=== PATIENT | female | born 1955 | race Caucasian/White ===

== ENCOUNTER 2022-02-22 01:21 | Emergency (ER) | payer OTHER ==
[~2022-02-22] VITALS: Ht 170.2 cm; Wt 105.2 kg
[2022-02-22 02:39] LABS: EOSINOPHILS % (AUTO) 3.6 % (0.0-8.0); HEMATOCRIT 38.3 % (36-48); LYMPHOCYTES % (AUTO) 26.4 % (21.0-51.0); MEAN CORPUSCULAR HEMOGLOBIN 30.6 pg (27.0-33.0); MEAN CORPUSCULAR HGB CONC 32.4 g/dL (32.0-36.0); MEAN CORPUSCULAR VOLUME 94.6 fL (79-99); MONOCYTES % (AUTO) 6.9 % (3.0-13.0); PLATELET COUNT (AUTO) 341 K/uL (130-400); RED BLOOD CELL COUNT(AUTO) 4.05 MIL/uL (4.00-5.50); RED CELL DISTRIBUTION WIDTH 13.6 % (11.0-15.5); WHITE BLOOD COUNT (AUTO) 8.1 K/uL (4.8-10.8)
[2022-02-22 02:52] LABS: CREATININE 1.2 mg/dL (0.5-1.5); POTASSIUM 3.8 mmol/L (3.5-5.1)
[2022-02-22 02:56] LABS: ALBUMIN 3.2 g/dL (3.5-5.0); BILIRUBIN,TOTAL 0.4 mg/dL (0.2-1.0); TOTAL PROTEIN, SERUM 7.3 g/dL (6.0-8.3)
[2022-02-22 03:00] LABS: B-TYPE NATRIURETIC PEPTIDE 135 pg/mL (0-100)
[2022-02-22 04:23] VITALS: BP 147/82
== END 2022-02-22 04:39 | disposition home or self-care (01) ==
LOC: EDH 01:21
DX: I11.0 Hypertensive heart disease with heart failure (principal); I50.9 Heart failure, unspecified; E03.9 Hypothyroidism, unspecified; E78.00 Pure hypercholesterolemia, unspecified; F41.9 Anxiety disorder, unspecified; Z86.73 Personal history of transient ischemic attack (TIA), and cerebral infarction without residual deficits; Z96.653 Presence of artificial knee joint, bilateral
CPT/HCPCS: 36415; 71045; 80053; 82550; 83735; 83880; 84484; 85025; 93005

== ENCOUNTER → 2024-06-05 | Outpatient (CLI) | payer OTHER ==
[~2024-06-05] MED LIST: DICL20GE TP; IBUP-2070 PO; MUPI22OI2 TP
== END | disposition home or self-care (01) ==
LOC: SHCH 10:53
PROVIDERS: ATTEND Internal Medicine Cardiovascular Disease
DX: I08.3 Combined rheumatic disorders of mitral, aortic and tricuspid valves (principal); I48.91 Unspecified atrial fibrillation
CPT/HCPCS: 93306

== ENCOUNTER → 2024-06-19 | Outpatient (CLI) | payer OTHER | END | disposition home or self-care (01) | LOC: SHCH 11:12 | PROVIDERS: ATTEND Internal Medicine Cardiovascular Disease | DX: R60.0 Localized edema (principal) | CPT/HCPCS: 93970 ==

== ENCOUNTER 2024-11-15 12:57 | Emergency (ER) | payer OTHER ==
[~2024-11-15] VITALS: Ht 170.2 cm; Wt 94.8 kg
[2024-11-15 13:48] LABS: BASOPHILS # (AUTO) 0.05 K/uL (0.00-0.20); BASOPHILS % (AUTO) 0.5 % (0.0-5.0); HEMATOCRIT 34.3 % (36-48); IMMATURE GRANULOCYTE ABSOLUTE 0.04 K/uL (0-1); LYMPHOCYTES # (AUTO) 1.1 K/uL (1.0-4.8); LYMPHOCYTES % (AUTO) 11.2 % (21.0-51.0); MEAN CORPUSCULAR HGB CONC 32.1 g/dL (32.0-36.0); MEAN CORPUSCULAR VOLUME 90.5 fL (79-99); MONOCYTES # (AUTO) 0.8 K/uL (0.1-1.0); NEUTROPHILS # (AUTO) 7.8 K/uL (1.8-7.7); NEUTROPHILS % (AUTO) 78.9 % (40.0-77.0); PLATELET COUNT (AUTO) 266 K/uL (130-400); RED BLOOD CELL COUNT(AUTO) 3.79 MIL/uL (4.00-5.50); RED CELL DISTRIBUTION WIDTH 14.1 % (11.0-15.5); WHITE BLOOD COUNT (AUTO) 9.9 K/uL (4.8-10.8)
--- NOTE | 2024-11-15 13:56 | EKG ---
[facility] Test Date: 2024-11-15 Test Time: 13:53:40 Pat Name: EDER ROSE Department: ED Room: Gender: F [place]: [id number] : 1955 Requested By: ABDI العلي Order Number: [id number] Reading MD: Josr Johnson Measurements Intervals [place] Rate: 103 P: 0 SD: 0 QRS: -22 QRSD: 99 T: 14 QT: 386 QTc: 507 Interpretive Statements Atrial fibrillation Borderline T abnormalities, diffuse leads Prolonged QT interval Compared to ECG 02/22/2022 03:10:54 T-wave abnormality now present Prolonged QT interval now present Sinus rhythm no longer present Myocardial infarct finding no longer present Electronically Signed On 11-15-2024 22:17:56 DIAGRAMMER by Josr Johnson Please click the below link to view image of tracing.
[2024-11-15 13:57] LABS: CREATININE 1.7 mg/dL (0.5-1.0); POTASSIUM 3.6 mmol/L (3.5-5.1)
[2024-11-15 15:16] LABS: COVID19 (SARS ANTIGEN RAPID) PRESUMPTIVE NEGATIVE (NEGATIVE)
[2024-11-15 15:17] LABS: INFLUENZA TYPE A Negative For Type A (NEGATIVE); INFLUENZA TYPE B Negative For Type B (NEGATIVE)
[2024-11-15 16:32] LABS: APPEARANCE,URINE CLOUDY (CLEAR); BILIRUBIN,URINE NEGATIVE (NEGATIVE); COLOR,URINE LIGHT-YELLOW (YELLOW); GLUCOSE, URINE (UA) NEGATIVE (NEGATIVE); KETONES,URINE NEGATIVE (NEGATIVE); LEUKOCYTE ESTERASE ,URINE 500 Leu/uL (NEGATIVE); NITRATE,URINE 2+ (NEGATIVE); PH,URINE 5.5 (5.0-8.0); PROTEIN,URINE 30 mg/dL (NEGATIVE); UROBILINOGEN,URINE 0.2 mg/dL (0.2-1.0)
[2024-11-15] MEDS: cefTRIAXone 1G VIAL IVPB ONE (16:32)
[2024-11-15 16:39] LABS: ADD UA MICROSCOPIC YES
[2024-11-15 16:41] LABS: BACTERIA,URINE MOD /HPF (None Seen); MUCUS,URINE RARE LPF (None Seen); SQUAMOUS EPITHELIAL CELL,UR FEW /HPF (0-2); UNCLASSIFIED CRYSTAL 1 /HPF (None Seen); WBC CLUMP FEW /HPF (0-1); WBC,URINE 51-100 /HPF (0-1)
[2024-11-15] MEDS: acetaMINOPHEN 500 MG TABLET PO ONE (17:05)
[2024-11-15 18:17] VITALS: TEMP 99.2
[2024-11-15] MEDS ORDERED: CIPR-278 PO (18:22)
--- NOTE | 2024-11-15 18:22 | ERN ---
ED Note History of Present Illness Stated Complaint: POSSIBLE UTI Chief Complaint: UTI without Fever Time Seen by MD: 12:58 Time Seen by Midlevel: 12:58 Dictation: The patient is a 69-year-old female with a history of hypothyroidism, hypertension, AFib on Eliquis who presents to the emergency department with complaints of fever and chills onset yesterday. Patient reports she thinks she has a urinary tract infection. Denies any nausea, vomiting, diarrhea, burning urination, cough or upper respiratory symptoms. Denies any flank pain. Allergies: Coded Allergies: Tetracyclines (Unverified Allergy, Unknown, 04/02/19) Home Meds Active Scripts Ciprofloxacin HCl (Cipro) 500 Mg Tablet, 1 TAB PO BID for 5 Days, #10 TAB 0 Refills Prov:PETRA GORE 11/15/24 Mupirocin (Mupirocin Ointment) 2 % Oint, 1 APPL TP TID for abrasions, #30 GM apply to any abrasions after cleansing Prov:NOHEMI NAVARRO 08/17/23 Ibuprofen (Ibuprofen) 600 Mg Tablet, 600 MG PO Q6H PRN for PAIN, #15 TAB Prov:NOHEMI NAVARRO 08/17/23 Diclofenac Sodium (Voltaren Arthritis Pain) 1 % Gel..gram., 20 GM TP BID PRN for PAIN, #100 GM Prov:NOHEMI NAVARRO 08/17/23 Past Medical History Past Medical History: A-Fib, UTI Surgical History: Hysterectomy, Cholecystectomy, Other Surgical History Other: ANKLE AND KNEE RN Note Reviewed/Agreed w/PFSH: Yes Review of System Dictation Constitutional: Negative for and weight loss positive for fever chills Eyes: Negative for injury, pain,redness, and discharge ENT: Negative for injury,pain or swelling Cardiovascular: Negative for chest pain, palpitations, and edema Respiratory: Negative for shortness of breath, cough, and wheezing, Abdomen/GI: Negative for abdominal pain, nausea, vomiting, diarrhea, and constipation Back: Negative for injury and pain : Negative for injury, bleeding and discharge MS/Extremity: Negative for injury and deformity Skin: Negative for rash, and discoloration Neuro: Negative for headache, weakness, numbness, tingling, and seizure Psych: Negative for suicide ideation, homicidal ideation, and hallucinations Initial Vital Sign VS Vital Signs Date Time Temp Pulse Resp B/P (MAP) Pulse Ox O2 Delivery O2 Flow Rate FiO2 11/15/24 13:47 102.0 113 20 148/75 98 Room Air 0 11/15/24 16:41 21 Physical Exam Dictation Vital Signs reviewed General Appearance: Alert, oriented x 3, no acute distress, well developed, nourished. Head and Face: non-traumatic. Eyes: PERRL, pink conjunctivas, eyelid no trauma, anterior chamber with arcus senilis. Ears: Pinnas intact and no signs of trauma or erythema ear canals clear and no discharge TM no erythema Nose: No discharge, no bleeding. Oropharynx: Mouth normal, tongue pink. pharynx clear,no erythema, tonsils no exudates, no abscesses noted, mucous membrane moist Neck: Supple, non-tender, no thyromegaly, no masses, no JVD, no bruits Breast:Deferred Chest:No tenderness, no crepitus, no paradoxical movement, no retractions Lungs:Clear, well-ventilated, symmetric, no rales, no wheezing, no rhonchi, no stridor, good breath sounds bilaterally Heart: Regular rate, regular rhythm r rhythm, no murmur, no gallops Vascular: no peripheral edema, Abdomen: Soft, positive bowel sounds, nondistended, no guarding, nontender, no rebound, no masses no hepatomegaly, no splenomegaly, no Boucher's sign, no hernias. Rectal: Deferred Genital: Deferred Neurological: Normal speech, motor function intact, sensory function intact Musculoskeletal: Neck nontender, full range of motion, back nontender, full range of motion, Extremities: nontender, full range of motion Skin: Color pink, dry, no turgor, no rash, no lacerations, no abrasions, no contusions. Lymphatic: Deferred Results (Laboratory/Radiology) Laboratory/Radiology Laboratory Tests Test 11/15/24 13:36 11/15/24 14:43 11/15/24 16:23 11/15/24 18:17 White Blood Count 9.9 K/uL (4.8-10.8) Red Blood Count 3.79 MIL/uL (4.00-5.50) L Hemoglobin 11.0 g/dL (12.0-16.0) L Hematocrit 34.3 % (36-48) L Mean Corpuscular Volume 90.5 fL (79-99) Mean Corpuscular Hemoglobin 29.0 pg (27.0-33.0) Mean Corpuscular Hemoglobin Concent 32.1 g/dL (32.0-36.0) Red Cell Distribution Width 14.1 % (11.0-15.5) Platelet Count 266 K/uL (130-400) Mean Platelet Volume 10.6 fL (7.5-10.5) H Immature Granulocyte % (Auto) 0.4 % (0-1) Neutrophils (%) (Auto) 78.9 % (40.0-77.0) H Lymphocytes (%) (Auto) 11.2 % (21.0-51.0) L Monocytes (%) (Auto) 8.0 % (3.0-13.0) Eosinophils (%) (Auto) 1.0 % (0.0-8.0) Basophils (%) (Auto) 0.5 % (0.0-5.0) Neutrophils # (Auto) 7.8 K/uL (1.8-7.7) H Lymphocytes # (Auto) 1.1 K/uL (1.0-4.8) Monocytes # (Auto) 0.8 K/uL (0.1-1.0) Eosinophils # (Auto) 0.10 K/uL (0.00-0.70) Basophils # (Auto) 0.05 K/uL (0.00-0.20) Absolute Immature Granulocyte (auto 0.04 K/uL (0-1) Nucleated Red Blood Cells 0.0 % (0.0-0.19) Sodium Level 138 mmol/L (136-145) Potassium Level 3.6 mmol/L (3.5-5.1) Chloride Level 102 mmol/L (101-111) Carbon Dioxide Level 27 mmol/L (21-32) Blood Urea Nitrogen 22 mg/dL (7-18) H Creatinine 1.7 mg/dL (0.5-1.0) H Glomerular Filtration Rate Calc 32 mL/min (>90) Random Glucose 96 mg/dL (70-105) Total Calcium 9.2 mg/dL (8.5-10.1) Troponin I High Sensitivity 8 ng/L (4-50) B-Type Natriuretic Peptide 335 pg/mL (0-100) H Influenza Type A Antigen Negative For Type A Influenza Type B Antigen Negative For Type B SARS-CoV-2 Antigen (Rapid) PRESUMPTIVE NEGATIVE Urine Color LIGHT-YELLOW (YELLOW) Urine Appearance CLOUDY (CLEAR) H Urine pH 5.5 (5.0-8.0) Urine Specific [place] 1.013 (1.001-1.031) Urine Protein 30 mg/dL (NEGATIVE) H Urine Glucose (UA) NEGATIVE mg/dL (NEGATIVE) Urine Ketones NEGATIVE mg/dL (NEGATIVE) Urine Occult Blood +- (TRACE) (NEGATIVE) H Urine Nitrate 2+ (NEGATIVE) H Urine Bilirubin NEGATIVE mg/dL (NEGATIVE) Urine Urobilinogen 0.2 mg/dL (0.2-1.0) Urine Leukocyte Esterase 500 [place]/uL (NEGATIVE) H Urine RBC 6-10 /HPF (0-1) H Urine WBC 51-100 /HPF (0-1) H Urine WBC Clumps (Auto) FEW /HPF (0-1) Urine Squamous Epithelial Cells FEW /HPF (0-2) Urine Other Crystals (Auto) 1 /HPF (None Seen) Urine Bacteria MOD /HPF (None Seen) Lactic Acid Level 1.4 mmol/L (0.8-2.5) Labs Reviewed?: Yes EKG: (+) rhythm (Atrial fibrillation) EKG Comment: EKG 11/15/2024 1353 ventricular rate 103, your regular rate and rhythm, atrial fibrillation, prolonged QT, no STEMI ED Course ED Course Orders Procedure Category Date Status Time Covid19 (Sars Antigen LAB 11/15/24 Complete Rapid) 13:00 Influenza Type A & B, LAB 11/15/24 Complete Rapid 13:00 Cbc With Differential LAB 11/15/24 Complete 13:15 Urinalysis Profile LAB 11/15/24 Complete 13:15 Basic Metabolic Panel LAB 11/15/24 Complete 13:15 12 Lead Ekg Tracing- EKG 11/15/24 Complete Technical 13:50 B-Type Natriuretic LAB 11/15/24 Complete Peptide 13:58 Lactic Acid LAB 11/15/24 Complete 13:58 Ceftriaxone 1g Vial PHA 11/15/24 Complete (Rocephine 1g Inj) 14:00 Blood Cult YAIR 11/15/24 Logged 13:58 12 Lead Ekg Tracing- EKG 11/15/24 Logged Technical 14:20 Troponin I High LAB 11/15/24 Complete Sensitivity 14:20 Culture Urine YAIR 11/15/24 In Process 16:39 Acetaminophen 500mg PHA 11/15/24 Complete Tab (Tylenol 500mg T 17:00 Current Medications Medications (Trade) Dose Ordered Sig/Laquita Route PRN Reason Start Time Stop Time Status Last Admin Dose Admin Acetaminophen (TYLenol 500MG TAB) 1,000 mg ONCE ONCE PO 11/15/24 17:00 11/15/24 17:01 DC 11/15/24 17:05 Ceftriaxone Sodium (ROCEphine 1G INJ) 1 gm ONCE ONCE IVPB 11/15/24 14:00 11/15/24 14:01 DC 11/15/24 16:32 Vital Signs Date Time Temp Pulse Resp B/P (MAP) Pulse Ox O2 Delivery O2 Flow Rate FiO2 11/15/24 17:05 99.9 11/15/24 16:41 99.9 104 20 147/83 96 Room Air* 0 21 11/15/24 13:47 102.0 113 20 148/75 98 Room Air 0 Medical Decision Making MDM The patient is a 69-year-old female with a history of hypothyroidism, hypertension, AFib on Eliquis who presents to the emergency department with complaints of fever and chills onset yesterday. Patient reports she thinks she has a urinary tract infection. Denies any nausea, vomiting, diarrhea, burning urination, cough or upper respiratory symptoms. Denies any flank pain. CBC showed no leukocytosis, normocytic anemia, chemistry showed creatinine of 1.7, GFR of 32, slightly decreased from previous admissions. Negative troponin. Urinalysis positive for leukocyte esterase and nitrites. Patient given Rocephin in ER. Patient refused IV, chest x-ray. At this time patient refuses to be admitted and reports she wants to go home. Patient in no acute distress. Heart rate improved. Patient instructed to follow up with primary doctor. Risks and benefits of leaving versus getting admitted discussed with the patient who agrees to leave. Differential diagnosis: UTI, upper respiratory infection, sepsis, ACS Need for hospitalization: Patient does not meet criteria for hospitalization. There are no social concerns with this patient. DX & DISP Disposition: Discharge Departure Impression: Primary Impression: UTI (urinary tract infection) Additional Impressions: Fever, A-fib, Elevated brain natriuretic peptide (BNP) level Condition: Stable Scripts Cephalexin Monohydrate (Keflex) 500 Mg Cap 500 MG PO BID for 7 Days, #14 CAP Prov: SOFÍAPETRA RUEDA 11/15/24 Additional Instructions: Please follow up with your primary doctor in 1-2 days. Please return to ER if symptoms worsen. Taking medications as prescribed. FOLLOW-UP WITH PRIMARY CARE PROVIDER IN 1 TO 2 DAYS. TAKE MEDICATIONS DIRECTED HERE IN THE EMERGENCY ROOM. OKAY TO CONTINUE HOME MEDICATIONS UNLESS OTHERWISE DISCUSSED DURING YOUR VISIT IN THE EMERGENCY ROOM TODAY. RETURN TO YOUR NEAREST EMERGENCY ROOM IF SYMPTOMS WORSEN OR IF THERE IS NO IMPROVEMENT. CALL 911 IF YOU NEED IMMEDIATE ASSISTANCE. TAKE TYLENOL OR MOTRIN [id number] NEEDED AND IF NO CONTRAINDICATIONS ARE PRESENT. INCREASE ORAL HYDRATION. A WOUND CULTURE OR URINE CULTURE WAS ORDERED HERE IN THE EMERGENCY ROOM DEPARTMENT PLEASE FOLLOW-UP WITH PRIMARY CARE PROVIDER AND ADVISE THEM TO GET REPEAT PORTS FROM OUR FACILITY. IF YOU HAD ANY XOCHITL WRAP/SPLINTS THAT WERE APPLIED HERE, PLEASE DO NOT REMOVE THEM UNTIL YOU SEE YOUR PRIMARY CARE OR SPECIALTY. Referrals: SELF,REFERRAL (PCP) Time of Disposition: 18:14 I have reviewed the case, and I agree with, Diagnosis and Plan PETRA GORE BREAD SUPERVISOR Nov 15, 2024 18:22
[2024-11-15] MEDS ORDERED: CEPH500B PO (18:33)
[2024-11-15 20:36] VITALS: BP 119/75; PULSE 90; RESP 18; TEMP 98.9; O2SAT 98
== END 2024-11-15 20:46 | disposition home or self-care (01) ==
LOC: EDH 12:57
DX: N39.0 Urinary tract infection, site not specified (principal); I48.91 Unspecified atrial fibrillation; R79.89 Other specified abnormal findings of blood chemistry; Z90.49 Acquired absence of other specified parts of digestive tract; Z90.710 Acquired absence of both cervix and uterus; Z20.822 Contact with and (suspected) exposure to COVID-19
CPT/HCPCS: 99284; 96365; 87426; 84484; 80048; 83880; 85025; 87040 ×2; 87086 ×2; 87186; 87804 ×2; 83605; 81001; 36415; 93005; J0696

== ENCOUNTER → 2024-11-29 | Outpatient (CLI) | payer OTHER ==
[~2024-11-29] MED LIST changes: +CEPH500B PO
== END | disposition home or self-care (01) ==
LOC: LAB 09:25
PROVIDERS: ATTEND Internal Medicine Cardiovascular Disease
DX: I10 Essential (primary) hypertension (principal)
CPT/HCPCS: 36415; 83880

== ENCOUNTER 2025-01-27 00:37 | Emergency (ER) | payer OTHER ==
[~2025-01-27] VITALS: Ht 170.2 cm; Wt 99.8 kg
--- NOTE | 2025-01-27 01:21 | HMCIMG ---
CT HEAD/BRAIN W/O CONTRAST HISTORY: Persistent headaches COMPARISON: None TECHNIQUE: Multiple sequential axial images of the head were obtained from the base of the skull through vertex. Patient was not given contrast through intravenous route. FINDINGS: The ventricles and extraventricular CSF spaces are dilated consistent with cerebral atrophy. Nonspecific white matter changes seen. There is left posterior temporal lobe infarct. There is no midline shift, mass effect or herniation. No acute intracranial bleed is seen. Visualized portion of the paranasal sinuses are grossly within normal limits. IMPRESSION: 1. No acute intracranial bleed is seen. 2. Atrophy with white matter changes. 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 CT was performed with one or more following dose reduction techniques: automated exposure control, adjustment of the mA and kv according to patient's size, or use of a iterative reconstruction technique.
[2025-01-27 01:57] LABS: BASOPHILS # (AUTO) 0.05 K/uL (0.00-0.20); BASOPHILS % (AUTO) 0.5 % (0.0-5.0); EOSINOPHILS # (AUTO) 0.24 K/uL (0.00-0.70); EOSINOPHILS % (AUTO) 2.5 % (0.0-8.0); HEMATOCRIT 34.9 % (36-48); IMMATURE GRANULOCYTE ABSOLUTE 0.03 K/uL (0-1); LYMPHOCYTES # (AUTO) 2.2 K/uL (1.0-4.8); LYMPHOCYTES % (AUTO) 23.6 % (21.0-51.0); MEAN CORPUSCULAR HEMOGLOBIN 28.4 pg (27.0-33.0); MEAN CORPUSCULAR HGB CONC 31.8 g/dL (32.0-36.0); MEAN CORPUSCULAR VOLUME 89.3 fL (79-99); MONOCYTES # (AUTO) 0.7 K/uL (0.1-1.0); MONOCYTES % (AUTO) 7.6 % (3.0-13.0); NEUTROPHILS # (AUTO) 6.2 K/uL (1.8-7.7); NEUTROPHILS % (AUTO) 65.5 % (40.0-77.0); PLATELET COUNT (AUTO) 270 K/uL (130-400); RED BLOOD CELL COUNT(AUTO) 3.91 MIL/uL (4.00-5.50); RED CELL DISTRIBUTION WIDTH 14.4 % (11.0-15.5); WHITE BLOOD COUNT (AUTO) 9.4 K/uL (4.8-10.8)
[2025-01-27 02:01] LABS: CREATININE 1.6 mg/dL (0.5-1.0); POTASSIUM 3.8 mmol/L (3.5-5.1)
--- NOTE | 2025-01-27 02:07 | ERN ---
General Chief Complaint: Headache Stated Complaint: FRONTAL HEADACHE X 4 DAYS Time Seen by MD: 00:44 Time Seen by Midlevel: 00:44 Source: patient History of Present Illness Initial Comments The patient is a 69-year-old female with a past medical history of hypertension, and atrial fibrillation presenting to the emergency department with a persistent frontal headache that has been ongoing for the last four days. She denies any head injury or fall. Denies any blurred vision. Denies any nausea, vomiting, or any other symptoms at this time. Allergies: Coded Allergies: Tetracyclines (Unverified Allergy, Unknown, 04/02/19) Home Meds Active Scripts Cephalexin Monohydrate (Keflex) 500 Mg Cap, 500 MG PO BID for 7 Days, #14 CAP Prov:PETRA GORE 11/15/24 Mupirocin (Mupirocin Ointment) 2 % Oint, 1 APPL TP TID for abrasions, #30 GM apply to any abrasions after cleansing Prov:NOHEMI NAVARRO 08/17/23 Ibuprofen (Ibuprofen) 600 Mg Tablet, 600 MG PO Q6H PRN for PAIN, #15 TAB Prov:NOHEMI NAVARRO 08/17/23 Diclofenac Sodium (Voltaren Arthritis Pain) 1 % Gel..gram., 20 GM TP BID PRN for PAIN, #100 GM Prov:NOHEMI NAVARRO 08/17/23 Past Medical History Past Medical History: A-Fib, CHF, CVA, Hypertension, TIA, UTI Past Surgical History: Hysterectomy, Cholecystectomy, Other Surgical History Other: ANKLE AND KNEE ROS Dictation CONSTITUTIONAL: Negative except for HPI HEAD/FACE: Negative except for HPI EENT: Negative except for HPI RESPIRATORY: Negative except for HPI GASTROINTESTINAL/ABDOMINAL: Negative except for HPI GENITOURINARY: Negative except for HPI MUSCULOSKELETAL: Negative except for HPI INTEGUMENTARY: Negative except for HPI NEUROLOGICAL/PSYCH: Negative except for HPI HEMATOLOGIC/LYMPHATIC: Negative except for HPI All Systems Negative, Except as noted above. 13 point review of systems assessed and all negative except for above. Physical Exam Physical Exam Dictation Vital Signs reviewed General Appearance: Alert, oriented x 3, no acute distress, well developed, nourished. Head and Face: non-traumatic. Eyes: PERRL, pink conjunctivas, eyelid no trauma, anterior chamber with arcus senilis. Ears: Pinnas intact and no signs of trauma or erythema ear canals clear and no discharge TM no erythema Nose: No discharge, no bleeding. Oropharynx: Mouth normal, tongue pink, pharynx clear,no erythema, tonsils no exudates, no abscesses noted, mucous membrane moist Neck: Supple, non-tender, no thyromegaly, no masses, no JVD, no bruits Breast:Deferred Chest:No tenderness, no crepitus, no paradoxical movement, no retractions Lungs:Clear, well-ventilated, symmetric, no rales, no wheezing, no rhonchi, no stridor, good breath sounds bilaterally Heart: Regular rate, regular rhythm, no murmur, no gallops Vascular: no peripheral edema, Abdomen: Soft, positive bowel sounds, nondistended, no guarding, nontender, no rebound, no masses no hepatomegaly, no splenomegaly, no Boucher's sign, no hernias. Rectal: Deferred Genital: Deferred Neurological: Normal speech, motor function intact, sensory function intact Musculoskeletal: Neck nontender, full range of motion, back nontender, full range of motion, Extremities: nontender, full range of motion Skin: Color pink, dry, no turgor, no rash, no lacerations, no abrasions, no contusions. Lymphatic: Deferred Results Laboratory and Microbiology Lab and Micro Result Laboratory Tests Test 01/27/25 01:47 White Blood Count 9.4 K/uL (4.8-10.8) Red Blood Count 3.91 MIL/uL (4.00-5.50) L Hemoglobin 11.1 g/dL (12.0-16.0) L Hematocrit 34.9 % (36-48) L Mean Corpuscular Volume 89.3 fL (79-99) Mean Corpuscular Hemoglobin 28.4 pg (27.0-33.0) Mean Corpuscular Hemoglobin Concent 31.8 g/dL (32.0-36.0) L Red Cell Distribution Width 14.4 % (11.0-15.5) Platelet Count 270 K/uL (130-400) Mean Platelet Volume 10.6 fL (7.5-10.5) H Immature Granulocyte % (Auto) 0.3 % (0-1) Neutrophils (%) (Auto) 65.5 % (40.0-77.0) Lymphocytes (%) (Auto) 23.6 % (21.0-51.0) Monocytes (%) (Auto) 7.6 % (3.0-13.0) Eosinophils (%) (Auto) 2.5 % (0.0-8.0) Basophils (%) (Auto) 0.5 % (0.0-5.0) Neutrophils # (Auto) 6.2 K/uL (1.8-7.7) Lymphocytes # (Auto) 2.2 K/uL (1.0-4.8) Monocytes # (Auto) 0.7 K/uL (0.1-1.0) Eosinophils # (Auto) 0.24 K/uL (0.00-0.70) Basophils # (Auto) 0.05 K/uL (0.00-0.20) Absolute Immature Granulocyte (auto 0.03 K/uL (0-1) Nucleated Red Blood Cells 0.0 % (0.0-0.19) Sodium Level 134 mmol/L (136-145) L Potassium Level 3.8 mmol/L (3.5-5.1) Chloride Level 101 mmol/L (101-111) Carbon Dioxide Level 28 mmol/L (21-32) Blood Urea Nitrogen 22 mg/dL (7-18) H Creatinine 1.6 mg/dL (0.5-1.0) H Glomerular Filtration Rate Calc 35 mL/min (>90) Random Glucose 115 mg/dL (70-105) H Total Calcium 8.6 mg/dL (8.5-10.1) Labs Reviewed?: Yes MDM MDM: Differential diagnosis: Intracranial bleed, migraine headache, dehydration There are no social concerns with this patient. Prescription drug management Prescriptions will include: None Medical management and examination interpretation discussions were had by me with other qualified healthcare professionals as indicated for the patient's care. ED Course Orders Procedure Category Date Status Time Cbc With Differential LAB 01/27/25 Complete 00:49 Basic Metabolic Panel LAB 01/27/25 Complete 00:49 Ct Head/Brain W/O CT 01/27/25 Resulted Contrast 00:49 Acetaminophen 500mg PHA 01/27/25 Complete Tab (Tylenol 500mg T 02:00 Current Medications Medications (Trade) Dose Ordered Sig/Laquita Route PRN Reason Start Time Stop Time Status Last Admin Dose Admin Acetaminophen (TYLenol 500MG TAB) 1,000 mg ONCE ONCE PO 01/27/25 02:00 01/27/25 02:01 DC 01/27/25 02:08 Vital Signs Date Time Temp Pulse Resp B/P (MAP) Pulse Ox O2 Delivery O2 Flow Rate FiO2 01/27/25 05:53 98.2 68 18 130/60 99 Room Air* 0 21 01/27/25 03:30 98.4 67 18 122/62 100 Room Air* 0 21 01/27/25 01:50 98.2 69 18 126/69 98 Room Air* 0 21 01/27/25 00:40 99.1 76 18 142/92 100 Room Air 0 [place] [id number] [address] IMAGING REPORT Signed PATIENT: EDER ROSE MR#: [id number] : 1955 SEX: F AGE: 69 LOCATION: [facility] ORDER STATUS: REG ER REPORT#: [id number] SERVICE [id number] REASON: persistent headache ORDERING PHYSICIAN: MADDI RICHMOND PROCEDURE: HEAD WO - CT HEAD/BRAIN W/O CONTRAST CT HEAD/BRAIN W/O CONTRAST HISTORY: Persistent headaches COMPARISON: None TECHNIQUE: Multiple sequential axial images of the head were obtained from the base of the skull through vertex. Patient was not given contrast through intravenous route. FINDINGS: The ventricles and extraventricular CSF spaces are dilated consistent with cerebral atrophy. Nonspecific white matter changes seen. There is left posterior temporal lobe infarct. There is no midline shift, mass effect or herniation. No acute intracranial bleed is seen. Visualized portion of the paranasal sinuses are grossly within normal limits. IMPRESSION: 1. No acute intracranial bleed is seen. 2. Atrophy with white matter changes. 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 CT was performed with one or more following dose reduction techniques: automated exposure control, adjustment of the mA and kv according to patient's size, or use of a iterative reconstruction technique. DICTATED BY: VERONICA RUBIO MD DATE: 01/27/256 ELECTRONICALLY SIGNED BY: VERONICA RUBIO MD DATE: 01/27/25 012 DX & DISP Disposition: Discharge Departure Impression: Primary Impression: Headache, unspecified Condition: Stable Additional Instructions: Your blood work today is stable. Your CT scan of the head does not show any acute abnormality. Please follow up with your primary care doctor for repeat evaluation. Return to the ER for any new or worsening symptoms Referrals: PRAKASH GOMEZ MD (PCP) Time of Disposition: 03:06 I have reviewed the case, and I agree with, Diagnosis and Plan I performed the substantive portion of the visit. I have reviewed and personally made and approve the management plan that is documented in the note by myself or the RAYO. I acknowledge for responsibility for the patient's management plan. MADDI RICHMOND Jan 27, 2025 02:07
[2025-01-27] MEDS: acetaMINOPHEN 500 MG TABLET PO ONE (02:08)
--- NOTE | 2025-01-27 03:15 | NUR ---
REPORT GIVEN TO ELODIA FROM [facility]
[2025-01-27 05:53] VITALS: BP 130/60; PULSE 68; RESP 18; TEMP 98.2; O2SAT 99
== END 2025-01-27 05:53 | disposition home or self-care (01) ==
LOC: EDH 00:37
DX: R51.9 Headache, unspecified (principal); I11.0 Hypertensive heart disease with heart failure; I50.9 Heart failure, unspecified; Z86.73 Personal history of transient ischemic attack (TIA), and cerebral infarction without residual deficits; Z79.899 Other long term (current) drug therapy; Z88.8 Allergy status to other drugs, medicaments and biological substances; Z90.49 Acquired absence of other specified parts of digestive tract; Z90.710 Acquired absence of both cervix and uterus
CPT/HCPCS: 36415; 70450; 80048; 85025; 99284

== ENCOUNTER 2025-04-19 06:57 | Emergency (ER) | payer OTHER ==
[~2025-04-19] VITALS: Ht 170.2 cm; Wt 104.3 kg
--- NOTE | 2025-04-19 07:36 | ERN ---
General Chief Complaint: Chest Wall Pain Stated Complaint: CHEST WALL TIGHTNESS Time Seen by MD: 07:20 Source: patient History of Present Illness Initial Comments Patient woke up this morning with chest wall tightness. No shortness of breath no substernal pain. No upper respiratory tract infection symptoms no GI symptoms no change in her health in the last few days. Still urinating well defecating well. Timing/Duration: 4-6 hours Allergies: Coded Allergies: Tetracyclines (Unverified Allergy, Unknown, 04/02/19) Home Meds Active Scripts Cephalexin Monohydrate (Keflex) 500 Mg Cap, 500 MG PO BID for 7 Days, #14 CAP Prov:PETRA GORE CLINICAL EDUCATION ACADEMIC COORDINATOR 11/15/24 Mupirocin (Mupirocin Ointment) 2 % Oint, 1 APPL TP TID for abrasions, #30 GM apply to any abrasions after cleansing Prov:NOHEMI NAVARRO 08/17/23 Ibuprofen (Ibuprofen) 600 Mg Tablet, 600 MG PO Q6H PRN for PAIN, #15 TAB Prov:NOHEMI NAVARRO 08/17/23 Diclofenac Sodium (Voltaren Arthritis Pain) 1 % Gel..gram., 20 GM TP BID PRN for PAIN, #100 GM Prov:NOHEMI NAVARRO 08/17/23 Past Medical History Past Medical History: A-Fib, Anemia, CHF, CVA, Hypertension, Renal Disese, TIA, UTI Medical History Other: THYROID DISEASE Past Surgical History: Hysterectomy, Cholecystectomy, Other Surgical History Other: ANKLE AND KNEE Constitutional: (-) chills, (-) diaphoresis, (-) fever, (-) malaise, (-) weakness, (-) other documentation EENTM: (-) eye pain, (-) blurred vision, (-) tearing, (-) double vision, (-) ear pain, (-) ear discharge, (-) nose pain, (-) nose congestion, (-) throat pain, (-) Throat swelling, (-) mouth pain, (-) tooth pain, (-) mouth swelling, (-) other documentation Respiratory: (-) cough, (-) orthopnea, (-) short of breath, (-) stridor, (-) wheezing, (-) other documentation Cardiovascular: (-) chest pain, (-) edema, (-) palpitations, (-) syncope, (-) dyspnea on exertion, (-) other documentation Gastrointestinal/Abdominal: (-) nausea, (-) vomiting, (-) diarrhea, (-) abdominal pain, (-) abdominal distention, (-) constipation, (-) rectal bleeding, (-) dark stool/melena, (-) other documentation Musculoskeletal: (-) Neck pain, (-) back pain, (-) Flank Pain, (-) joint pain, (-) joint swelling, (-) muscle pain, (-) muscle stiffness, (-) gout, (-) other documentation Skin: (-) laceration, (-) contusion, (-) abrasion, (-) abscess, (-) rash, (-) change in color, (-) change in hair, (-) change in nails, (-) diaphoresis, (-) dryness, (-) other documentation Physical Exam General Appearance: (+) no apparent distress Orientation: (+) alert, (+) oriented x 3 Head/Face Trauma: No Eye: bilateral eye normal inspection, bilateral eye PERRL, bilateral eye EOMI Ear, Nose, Throat: (+) hearing grossly normal, (+) normal ENT inspection, (+) moist mucous membraine Neck: (+) normal inspection, (+) supple, (+) full range of motion Respiratory: (+) lungs clear, (+) well ventilated Respiratory Comment Patient does have left upper chest wall tenderness. Heart: (+) no gallop, (+) irregular Vascular: (+) no edema, (+) normal peripheral pulse Gastrointestinal: (+) soft, (+) non-tender, (+) bowel sound present Results Laboratory and Microbiology Lab and Micro Result Laboratory Tests Test 04/19/25 08:24 White Blood Count 7.4 K/uL (4.8-10.8) Red Blood Count 4.12 MIL/uL (4.00-5.50) Hemoglobin 11.6 g/dL (12.0-16.0) L Hematocrit 36.8 % (36-48) Mean Corpuscular Volume 89.3 fL (79-99) Mean Corpuscular Hemoglobin 28.2 pg (27.0-33.0) Mean Corpuscular Hemoglobin Concent 31.5 g/dL (32.0-36.0) L Red Cell Distribution Width 14.5 % (11.0-15.5) Platelet Count 316 K/uL (130-400) Mean Platelet Volume 9.8 fL (7.5-10.5) Immature Granulocyte % (Auto) 0.1 % (0-1) Neutrophils (%) (Auto) 59.0 % (40.0-77.0) Lymphocytes (%) (Auto) 28.5 % (21.0-51.0) Monocytes (%) (Auto) 8.3 % (3.0-13.0) Eosinophils (%) (Auto) 3.2 % (0.0-8.0) Basophils (%) (Auto) 0.9 % (0.0-5.0) Neutrophils # (Auto) 4.4 K/uL (1.8-7.7) Lymphocytes # (Auto) 2.1 K/uL (1.0-4.8) Monocytes # (Auto) 0.6 K/uL (0.1-1.0) Eosinophils # (Auto) 0.24 K/uL (0.00-0.70) Basophils # (Auto) 0.07 K/uL (0.00-0.20) Absolute Immature Granulocyte (auto 0.01 K/uL (0-1) Nucleated Red Blood Cells 0.0 % (0.0-0.19) Sodium Level 143 mmol/L (136-145) Potassium Level 4.2 mmol/L (3.5-5.1) Chloride Level 106 mmol/L (101-111) Carbon Dioxide Level 30 mmol/L (21-32) Blood Urea Nitrogen 22 mg/dL (7-18) H Creatinine 1.4 mg/dL (0.5-1.0) H Glomerular Filtration Rate Calc 41 mL/min (>90) Random Glucose 101 mg/dL (70-105) Total Calcium 9.0 mg/dL (8.5-10.1) Total Creatine Kinase 77 U/L (21-232) # Troponin I High Sensitivity 9 ng/L (4-50) B-Type Natriuretic Peptide 108 pg/mL (0-100) H Procalcitonin < 0.05 ng/mL (0.05-0.5) L MDM Patient has chest wall pain and tightness that is reproducible by palpation. I will not do an extended workup. We will get an EKG a troponin I will give the patient some fluid and discharge her back. Assuming no surprises I discussed this plan with the patient and she is agreeable. Patient's EKGs negative patient's troponin is negative patient's BNP is slightly elevated. Patient does have chronic renal failure which could explain that result. Patient's chest x-ray does possibly have some extra fluid on it possible cephalization possible infiltrate. With a normal CBC and a normal procalcitonin it is hard to give the patient a diagnosis of pneumonia especially in the absence of any upper respiratory tract infections . Currently the patient feels fine and would like to go home. I will cautioned her to return if she has any increase in upper respiratory tract infections or chest tightness. ED Course Orders Procedure Category Date Status Time Vital Signs Per CPOE 04/19/25 Transmitted Routine 07:22 B-Type Natriuretic LAB 04/19/25 Complete Peptide 07:22 Chest 1vw RAD 04/19/25 Taken 07:22 12 Lead Ekg Tracing- EKG 04/19/25 Logged Technical 07:22 Oxygen By Nc/Pulse Ox CPOE 04/19/25 Transmitted 07:22 Maintain Iv CPOE 04/19/25 Transmitted 07:22 Iv Insertion CPOE 04/19/25 Transmitted 07:22 Cardiac Monitoring CPOE 04/19/25 Transmitted 07:22 Pulse Oximetry With CPOE 04/19/25 Transmitted Vs And Prn 07:22 Cbc With Differential LAB 04/19/25 Complete 07:22 Activity: Br W/Brp CPOE 04/19/25 Transmitted With Assist 07:22 Creatine Kinase, Total LAB 04/19/25 Complete 07:22 Troponin I High LAB 04/19/25 Complete Sensitivity 07:22 Urinalysis Profile LAB 04/19/25 Logged 07:22 Basic Metabolic Panel LAB 04/19/25 Complete 07:22 12 Lead Ekg Tracing- EKG 04/19/25 Complete Technical 07:20 Lactated Ringers PHA 04/19/25 Complete 1000ml (Lactated 07:20 Cyclobenzaprine Hcl PHA 04/19/25 Complete (Cyclobenzaprine Hcl 07:30 Procalcitonin LAB 04/19/25 Complete 08:41 Current Medications Medications (Trade) Dose Ordered Sig/Laquita Route PRN Reason Start Time Stop Time Status Last Admin Dose Admin Cyclobenzaprine HCl (Cyclobenzaprine HCl) 10 mg ONCE ONCE PO 04/19/25 07:30 04/19/25 07:31 DC 04/19/25 09:06 Lactated Ringer's (Lactated Ringers 1000ml) 1,000 ml BOLUS STAT IV 04/19/25 07:20 04/19/25 07:29 DC 04/19/25 09:07 Vital Signs Date Time Temp Pulse Resp B/P (MAP) Pulse Ox O2 Delivery O2 Flow Rate FiO2 04/19/25 08:38 73 21 139/81 97 Room Air* 0 21 04/19/25 07:08 98.1 67 11 153/97 97 Room Air DX & DISP Disposition: Discharge Departure Impression: Primary Impression: Elevated brain natriuretic peptide (BNP) level Condition: Stable Additional Instructions: You came in with chest wall tightness and reproducible chest wall tenderness. I have treated that with the muscle relaxant. We gave you some muscle relaxants and your chest wall tightness has improved. Laboratory analysis shows you are not having and a acute cardiac event. You do have an elevated BNP which could indicate a little bit of extra fluid in your lungs but it is also reflective of your atrial fibrillation. You do not have a bacterial infection. Your complete blood count is normal including the number of white blood cells in your blood stream. It is okay to be discharged from the emergency room. Please come back to the emergency room if you have difficulty breathing or increased symptoms of an upper respiratory tract infection. Referrals: PRAKASH GOMEZ MD (PCP) DARWIN CHRISTIANSON MD April 19, 2025 07:36
[2025-04-19 08:30] LABS: BASOPHILS # (AUTO) 0.07 K/uL (0.00-0.20); BASOPHILS % (AUTO) 0.9 % (0.0-5.0); EOSINOPHILS # (AUTO) 0.24 K/uL (0.00-0.70); EOSINOPHILS % (AUTO) 3.2 % (0.0-8.0); HEMATOCRIT 36.8 % (36-48); IMMATURE GRANULOCYTE ABSOLUTE 0.01 K/uL (0-1); LYMPHOCYTES # (AUTO) 2.1 K/uL (1.0-4.8); LYMPHOCYTES % (AUTO) 28.5 % (21.0-51.0); MEAN CORPUSCULAR HEMOGLOBIN 28.2 pg (27.0-33.0); MEAN CORPUSCULAR HGB CONC 31.5 g/dL (32.0-36.0); MEAN CORPUSCULAR VOLUME 89.3 fL (79-99); MONOCYTES # (AUTO) 0.6 K/uL (0.1-1.0); MONOCYTES % (AUTO) 8.3 % (3.0-13.0); NEUTROPHILS # (AUTO) 4.4 K/uL (1.8-7.7); PLATELET COUNT (AUTO) 316 K/uL (130-400); RED BLOOD CELL COUNT(AUTO) 4.12 MIL/uL (4.00-5.50); RED CELL DISTRIBUTION WIDTH 14.5 % (11.0-15.5); WHITE BLOOD COUNT (AUTO) 7.4 K/uL (4.8-10.8)
--- NOTE | 2025-04-19 08:35 | EKG ---
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
[2025-04-19 08:44] LABS: CREATININE 1.4 mg/dL (0.5-1.0); POTASSIUM 4.2 mmol/L (3.5-5.1)
[2025-04-19 09:04] LABS: B-TYPE NATRIURETIC PEPTIDE 108 pg/mL (0-100)
[2025-04-19] MEDS: CYCLOBENZAPRINE HCL 10 MG TABLET PO ONE (09:06)
[2025-04-19] MEDS: LACTATED RINGERS 1000ML IV STA (09:07)
--- NOTE | 2025-04-19 09:59 | NUR ---
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 I INFORMED HER WE WOULD CALL BACK IN 30MINS.
[2025-04-19 10:38] LABS: APPEARANCE,URINE CLEAR (CLEAR); BILIRUBIN,URINE NEGATIVE (NEGATIVE); COLOR,URINE COLORLESS (YELLOW); GLUCOSE, URINE (UA) NEGATIVE (NEGATIVE); KETONES,URINE NEGATIVE (NEGATIVE); LEUKOCYTE ESTERASE ,URINE NEGATIVE Leu/uL (NEGATIVE); NITRATE,URINE NEGATIVE (NEGATIVE); OCCULT BLOOD,URINE NEGATIVE (NEGATIVE); PROTEIN,URINE NEGATIVE (NEGATIVE); UROBILINOGEN,URINE 0.2 mg/dL (0.2-1.0)
--- NOTE | 2025-04-19 10:38 | NUR ---
PCS FORM FILLED OUT, SIGNED AND JUST FAXED TO [facility]
--- NOTE | 2025-04-19 10:43 | NUR ---
CALLED AND SPOKE TO DAHIANA CHAVEZ FOR REPORT FROM [facility] [place]
[2025-04-19 10:47] LABS: ADD UA MICROSCOPIC NO
--- NOTE | 2025-04-19 11:05 | HMCIMG ---
CHEST 1VW HISTORY: Chest pain COMPARISON: 02/22/2022 FINDINGS: A frontal projection of the chest was obtained. No acute pulmonary infiltrates is seen. The heart is borderline enlarged. Prominent interstitial markings are seen. Degenerative changes are seen. No evidence of aortic calcification is seen. IMPRESSION: 1. No acute pulmonary infiltrate is seen.
--- NOTE | 2025-04-19 11:48 | NUR ---
[facility] TRANSFER PER DISPATCH, THEY DID NOT RECEIVE THE PCS FORM BUT DID RECEIVE THE FACE SHEET. THE PCS FORM WAS REVAXED TO THEM
--- NOTE | 2025-04-19 12:18 | NUR ---
facesheet and pcs form faxed out for third time as per denise hodges
--- NOTE | 2025-04-19 12:53 | NUR ---
PER DISPATCH: THEY STILL ARE NOT GETTING THE FAX PCS FORMS DESPITE US GETTING A CONFIRMATION RECEIPT. THEY WILL GO AHEAD AND PUT PT IN CUE AND WHEN MEDICS ARRIVE, WE ARE TO JUST MAKE SURE THEY HAVE THE PCS FORM IN HAND AND HAVE IT.
--- NOTE | 2025-04-19 13:27 | NUR ---
TRANSFER: [id number] JUST ARRIVED TO TAKE PT BACK TO [facility]
[2025-04-19 13:37] VITALS: BP 161/95; PULSE 81; RESP 17; TEMP 98; O2SAT 98
--- NOTE | 2025-04-19 13:38 | NUR ---
dc patient was dc'd by dr. corral today, i explaned to patient to follow up with pcp and consults,i dc'd patients iv with cath still intact and applied 2x2 gauze with coban, i also provided patient with info based on diagnosis, patient was taken by ems, no complications
== END 2025-04-19 13:32 | disposition home or self-care (01) ==
LOC: EDH 06:57
DX: R79.89 Other specified abnormal findings of blood chemistry (principal); I11.0 Hypertensive heart disease with heart failure; I50.9 Heart failure, unspecified; I48.91 Unspecified atrial fibrillation; Z86.73 Personal history of transient ischemic attack (TIA), and cerebral infarction without residual deficits; Z90.49 Acquired absence of other specified parts of digestive tract; Z90.710 Acquired absence of both cervix and uterus; Z98.890 Other specified postprocedural states
CPT/HCPCS: 99283; 96360; 96361; 71045; 82550; 84484; 80048; 83880; 85025; 81003; 36415; 93005; 84145; J7120

== ENCOUNTER → 2025-05-09 | Outpatient (CLI) | payer OTHER ==
--- NOTE | 2025-05-09 12:16 | HMCIMG ---
US SOFT TISSUE UPPER EXTREMITY REASON: MASS/LUMP TO LUE. COMPARISON: None TECHNIQUE: Left antecubital soft tissue ultrasound study was performed. FINDINGS: At the region of interest in the left antecubital area, there is lipoma measuring 1.8 x 0.6 x 2.4 cm. IMPRESSION: Lipoma measuring 1.8 x 0.6 x 2.4 cm.
== END | disposition home or self-care (01) ==
LOC: RAH 11:01
PROVIDERS: ATTEND Internal Medicine
DX: D17.79 Benign lipomatous neoplasm of other sites (principal); R22.9 Localized swelling, mass and lump, unspecified
CPT/HCPCS: 76882

== ENCOUNTER 2025-08-06 14:31 | Observation (INO) | payer OTHER ==
[~2025-08-06] VITALS: Ht 170.2 cm; Wt 106.1 kg
[~2025-08-06 14:31] MED LIST changes: +IBUP-1492 PO; -IBUP-2070 PO
--- NOTE | 2025-08-06 14:42 | ERN ---
ED Note History of Present Illness Stated Complaint: CP Chief Complaint: Chest Pain Time Seen by MD: 14:32 Dictation: PATIENT IS A 70-YEAR-OLD FEMALE COMING IN VIA EMS WITH COMPLAINTS OF AN ACUTE ONSET OF SUBSTERNAL CHEST PAIN THAT DOES NOT RADIATE BUT IS STABBING IN NATURE ONSET 30 MINUTES PRIOR TO ARRIVAL. SHE STATES SHE WAS IN A STRESSFUL SITUATION WHEN SHE FELT THE PAIN SHE SAID IT KIND OF COMES AND GOES. NO JAW PAIN NO ARM PAIN NO BACK PAIN. NO NAUSEA NO VOMITING. STATES SHE DOES HAVE A HISTORY OF ATRIAL FIBRILLATION, IS ON ELIQUIS AND SEES DR. WEATHERS. Allergies: Coded Allergies: Tetracyclines (Unverified Allergy, Unknown, 04/02/19) Home Meds Active Scripts Cephalexin Monohydrate (Keflex) 500 Mg Cap, 500 MG PO BID for 7 Days, #14 CAP Prov:PETRA GORE CAUSTIC ROOM ATTENDANT 11/15/24 Mupirocin (Mupirocin Ointment) 2 % Oint, 1 APPL TP TID for abrasions, #30 GM apply to any abrasions after cleansing Prov:NOHEMI NAVARRO 08/17/23 Ibuprofen (Ibuprofen) 600 Mg Tablet, 600 MG PO Q6H PRN for PAIN, #15 TAB Prov:NOHEMI NAVARRO 08/17/23 Diclofenac Sodium (Voltaren Arthritis Pain) 1 % Gel..gram., 20 GM TP BID PRN for PAIN, #100 GM Prov:NOHEMI NAVARRO 08/17/23 Past Medical History Past Medical History: A-Fib, Anemia, CVA, Hypothyroid, Other Additional Past Medical Hx: CKD NOT ON DIALYSIS Surgical History: Pacer/AICD, Other Surgical History Other: KNEE SX History: Not Applicable RN Note Reviewed/Agreed w/PFSH: Yes Review of System Dictation CONSTITUTIONAL: NEGATIVE EXCEPT FOR HPI HEAD/FACE: NEGATIVE EXCEPT FOR HPI EENT: NEGATIVE EXCEPT FOR HPI RESPIRATORY: NEGATIVE EXCEPT FOR HPI SUBSTERNAL CHEST PAIN GASTROINTESTINAL/ABDOMINAL: NEGATIVE EXCEPT FOR HPI GENITOURINARY: NEGATIVE EXCEPT FOR HPI MUSCULOSKELETAL: NEGATIVE EXCEPT FOR HPI INTEGUMENTARY: NEGATIVE EXCEPT FOR HPI NEUROLOGICAL/PSYCH: NEGATIVE EXCEPT FOR HPI HEMATOLOGIC/LYMPHATIC: NEGATIVE EXCEPT FOR HPI ALL SYSTEMS NEGATIVE, EXCEPT NOTED ABOVE. 13 POINT REVIEW OF SYSTEMS ASSESSED AND ALL NEGATIVE EXCEPT FOR ABOVE. Initial Vital Sign VS Vital Signs Date Time Temp Pulse Resp B/P (MAP) Pulse Ox O2 Delivery O2 Flow Rate FiO2 08/06/25 14:36 98.4 73 18 124/70 97 Room Air 0 08/06/25 15:26 28 Physical Exam Dictation VITAL SIGNS REVIEWED GENERAL APPEARANCE: ALERT, ORIENTED X 3, MODERATE ACUTE DISTRESS, WELL DEVELOPED, NOURISHED. OBESE HEAD AND FACE: NON-TRAUMATIC. EYES: PERRL, PINK CONJUNCTIVAS, EYELID NO TRAUMA, ANTERIOR CHAMBER WITH ARCUS SENILIS. EARS: PINNAS INTACT AND NO SIGNS OF TRAUMA OR ERYTHEMA EAR CANALS CLEAR AND NO DISCHARGE TM NO ERYTHEMA NOSE: NO DISCHARGE, NO BLEEDING. OROPHARYNX: MOUTH NORMAL, TONGUE PINK, PHARYNX CLEAR,NO ERYTHEMA, TONSILS NO EXUDATES, NO ABSCESSES NOTED, MUCOUS MEMBRANE MOIST NECK: SUPPLE, NON-TENDER, NO THYROMEGALY, NO MASSES, NO JVD, NO BRUITS BREAST:DEFERRED CHEST:NO TENDERNESS, NO CREPITUS, NO PARADOXICAL MOVEMENT, NO RETRACTIONS LUNGS:CLEAR, WELL-VENTILATED, SYMMETRIC, NO RALES, NO WHEEZING, NO RHONCHI, NO STRIDOR, GOOD BREATH SOUNDS BILATERALLY HEART: REGULAR RATE, REGULAR RHYTHM, NO MURMUR, NO GALLOPS VASCULAR: N 1+ PERIPHERAL EDEMA, BILATERAL LOWER EXTREMITIES ABDOMEN: SOFT, POSITIVE BOWEL SOUNDS, NONDISTENDED, NO GUARDING, NONTENDER, NO REBOUND, NO MASSES NO HEPATOMEGALY, NO SPLENOMEGALY, NO GOMEZ'S SIGN, NO HERNIAS. RECTAL: DEFERRED GENITAL: DEFERRED NEUROLOGICAL: NORMAL SPEECH, MOTOR FUNCTION INTACT, SENSORY FUNCTION INTACT MUSCULOSKELETAL: NECK NONTENDER, FULL RANGE OF MOTION, BACK NONTENDER, FULL RANGE OF MOTION, EXTREMITIES: NONTENDER, FULL RANGE OF MOTION SKIN: COLOR PINK, DRY, NO TURGOR, NO RASH, NO LACERATIONS, NO ABRASIONS, NO CONTUSIONS. LYMPHATIC: DEFERRED Results (Laboratory/Radiology) Laboratory/Radiology Laboratory Tests Test 08/06/25 14:53 White Blood Count 7.2 K/uL (4.8-10.8) Red Blood Count 3.99 MIL/uL (4.00-5.50) L Hemoglobin 11.1 g/dL (12.0-16.0) L Hematocrit 35.9 % (36-48) L Mean Corpuscular Volume 90.0 fL (79-99) Mean Corpuscular Hemoglobin 27.8 pg (27.0-33.0) Mean Corpuscular Hemoglobin Concent 30.9 g/dL (32.0-36.0) L Red Cell Distribution Width 14.6 % (11.0-15.5) Platelet Count 286 K/uL (130-400) Mean Platelet Volume 10.4 fL (7.5-10.5) Immature Granulocyte % (Auto) 0.3 % (0-1) Neutrophils (%) (Auto) 60.3 % (40.0-77.0) Lymphocytes (%) (Auto) 25.6 % (21.0-51.0) Monocytes (%) (Auto) 8.2 % (3.0-13.0) Eosinophils (%) (Auto) 5.0 % (0.0-8.0) Basophils (%) (Auto) 0.6 % (0.0-5.0) Neutrophils # (Auto) 4.4 K/uL (1.8-7.7) Lymphocytes # (Auto) 1.9 K/uL (1.0-4.8) Monocytes # (Auto) 0.6 K/uL (0.1-1.0) Eosinophils # (Auto) 0.36 K/uL (0.00-0.70) Basophils # (Auto) 0.04 K/uL (0.00-0.20) Absolute Immature Granulocyte (auto 0.02 K/uL (0-1) Nucleated Red Blood Cells 0.0 % (0.0-0.19) Red Blood Cell Morphology See comments Sodium Level 138 mmol/L (136-145) Potassium Level 4.4 mmol/L (3.5-5.1) Chloride Level 101 mmol/L (101-111) Carbon Dioxide Level 31 mmol/L (21-32) Blood Urea Nitrogen 22 mg/dL (7-18) H Creatinine 1.5 mg/dL (0.5-1.0) H Glomerular Filtration Rate Calc 37 mL/min (>90) Random Glucose 116 mg/dL (70-105) H Total Calcium 9.0 mg/dL (8.5-10.1) Troponin I High Sensitivity 8 ng/L (4-50) B-Type Natriuretic Peptide 150 pg/mL (0-100) H Labs Reviewed?: Yes EKG Comment: FIRST EKG ATRIAL FIBRILLATION/VENTRICULAR RATE 73/AXIS NORMAL/NO ECTOPY 1634/REPEAT EKG ATRIAL FIBRILLATION HEART RATE 73/NONSPECIFIC CHANGES IN LEADS TWO AND THREE. ED Course ED Course Orders Procedure Category Date Status Time B-Type Natriuretic LAB 08/06/25 Complete Peptide 14:37 Cbc With Differential LAB 08/06/25 Complete 14:37 Chest 1vw RAD 08/06/25 Resulted 14:37 12 Lead Ekg Tracing- EKG 08/06/25 Logged Technical 14:37 Nitroglycerin 0.4mg PHA 08/06/25 In Process Sl Tab (Nitrostat) 15:00 Morphine 4mg Syg PHA 08/06/25 Complete (Morphine 4mg Syg) 15:00 Ondansetron 4mg Inj PHA 08/06/25 Complete (Zofran 4mg Inj) 15:00 Troponin I High LAB 08/06/25 Complete Sensitivity 14:37 Basic Metabolic Panel LAB 08/06/25 Complete 14:37 Oxygen By Nc/Pulse Ox CPOE 08/06/25 Transmitted 14:37 Aspirin 325mg Tab PHA 08/06/25 Complete (Aspirin 325mg Tab) 15:00 Acetaminophen 500mg PHA 08/06/25 Complete Tab (Tylenol 500mg T 15:30 Morphine 2mg Syg PHA 08/06/25 Complete (Morphine 2mg Syg) 16:00 Ondansetron 4mg Inj PHA 08/06/25 Complete (Zofran 4mg Inj) 16:00 12 Lead Ekg Tracing- EKG 08/06/25 Logged Technical 16:26 Troponin I High LAB 08/06/25 In Process Sensitivity 16:26 Current Medications Medications (Trade) Dose Ordered Sig/Laquita Route PRN Reason Start Time Stop Time Status Last Admin Dose Admin Acetaminophen (TYLenol 500MG TAB) 1,000 mg ONCE ONCE PO 08/06/25 15:30 08/06/25 15:31 DC 08/06/25 16:23 Aspirin (Aspirin 325mg Tab) 325 mg ONCE ONCE PO 08/06/25 15:00 08/06/25 15:01 DC 08/06/25 16:23 Morphine Sulfate (morPHINE 2MG SYG) 2 mg ONCE ONCE IVP 08/06/25 16:00 08/06/25 16:01 DC Morphine Sulfate (morPHINE 4MG SYG) 4 mg ONCE ONCE IVP 08/06/25 15:00 08/06/25 14:58 DC Nitroglycerin (Nitrostat) 0.4 mg Q5M PRN SL CHEST PAIN 08/06/25 15:00 Ondansetron HCl (zoFRAN 4MG INJ) 4 mg ONCE ONCE IVP 08/06/25 15:00 08/06/25 14:58 DC Ondansetron HCl (zoFRAN 4MG INJ) 4 mg ONCE ONCE IVP 08/06/25 16:00 08/06/25 16:01 DC Vital Signs Date Time Temp Pulse Resp B/P (MAP) Pulse Ox O2 Delivery O2 Flow Rate FiO2 08/06/25 15:26 98.6 75 20 115/63 98 Nasal Cannula* 2 28 08/06/25 14:36 98.4 73 18 124/70 97 Room Air 0 1445/PATIENT REFUSED MORPHINE AT THIS TIME STATES SHE DID NOT NEEDED. SHE DID ACCEPT THE ASPIRIN AND NITROGLYCERIN. SAID THE PAIN IS NOW GONE.1545/ 1545/SPOKE WITH PATIENT AT LENGTH REGARDING CLINICAL FINDINGS. SHE STATES SHE STILL HAVING INTERMITTENT PAIN IT DOES NOT RADIATE SHE SAID SHE WOULD NOT LIKE THE MORPHINE POLICE. SHE STATES NITRO DID NOT HELP THE PAIN. 1700/SPOKE WITH DR. GOMEZ REVIEWED EKG LABS CHEST X-RAY AND INTERVENTIONS FOR PAIN. SHE AGREED TO ADMIT. HEART Score Response (Comments) Value EKG: Repolarization changes 1 Age: > 65yrs (+2) 2 Risk Factors: 3+ risk factors (+2) 2 Initial Troponin: Normal limit (0) 0 Total 5 Medical Decision Making MDM MDM: DIFFERENTIAL DIAGNOSIS: CS/AMI/ELECTROLYTE IMBALANCE/DEHYDRATION/PNEUMONIA/BR ONCHITIS/ELECTROLYTE RATIONALE: TESTS CONSIDERED AND ORDERED SECONDARY TO SHARED DECISION MAKING INCLUDE: LABS, ECG AND RADIOLOGY PREVIOUS OUTSIDE RECORDS REVIEWED: OLD ER VISITS. RISK OF COMPLICATION AND/OR MORBIDITY OR MORTALITY OF PATIENT MANAGEMENT: N MILD MEDICATIONS-PER MEDICATION RECONCILIATION NEED FOR HOSPITALIZATION: PATIENT DOES MEET CRITERIA FOR HOSPITALIZATION. PATIENT WILL NEED TO BE ADMITTED FOR HIGH-RISK CHEST PAIN, ATRIAL FIBRILLATION PRISCILLA NEED FOR EMERGENCY MAJOR/MINOR SURGERY: NO THERE ARE NO SOCIAL CONCERNS WITH THIS PATIENT. PRESCRIPTION DRUG MANAGEMENT PRESCRIPTIONS WILL INCLUDE SYMPTOMATIC CARE PATIENT'S PRIOR EXTERNAL MEDICAL RECORDS FROM OTHER ER VISITS WERE REVIEWED BY ME INDICATED. PRIOR TESTING AND RESULTS FROM PREVIOUS VISITS WERE REVIEWED. PRIOR TESTS WERE TAKEN INTO ACCOUNT WITH MEDICAL DECISION MAKING AND RESOURCE UTILIZATION, INDEPENDENT HISTORIAN/HISTORIANS WERE USED TO OBTAIN COMPLETE MEDICAL HISTORY. I INDEPENDENTLY INTERPRETED THE TEST THAT WERE PERFORMED, RESULTS WERE REVIEWED BY ME AND CONSIDERED FINDINGS ON RADIOLOGY IF ORDERED. MEDICAL MANAGEMENT AND EXAMINATION INTERPRETATION DISCUSSIONS WERE HAD BY ME WITH OTHER QUALIFIED HEALTHCARE PROFESSIONALS INDICATED FOR THE PATIENT'S CARE. DX & DISP Disposition: Inpatient Decision to Admit Time: 15:48 Departure Impression: Primary Impression: Chest pain with high risk of acute coronary syndrome Additional Impressions: Atrial fibrillation, Stage 3 chronic kidney disease, Anemia, Hyperglycemia Condition: Stable Referrals: PRAKASH GOMEZ MD (PCP) Time of Disposition: 15:48 I have reviewed the case, and I agree with, Diagnosis and Plan ERWIN PERSAUD NP Aug 06, 2025 14:42
[2025-08-06 15:01] LABS: IMMATURE GRANULOCYTE ABSOLUTE 0.02 K/uL (0-1); NUCLEATED RED BLOOD CELLS 0.0 % (0.0-0.19); PLATELET COUNT (AUTO) 286 K/uL (130-400); RED BLOOD CELL COUNT(AUTO) 3.99 MIL/uL (4.00-5.50); RED CELL DISTRIBUTION WIDTH 14.6 % (11.0-15.5); WHITE BLOOD COUNT (AUTO) 7.2 K/uL (4.8-10.8)
[2025-08-06 15:17] LABS: CREATININE 1.5 mg/dL (0.5-1.0); GLOMERULAR FILTR. RATE CALC 37.0 mL/min (>90); GLUCOSE,RANDOM 116.0 mg/dL (70-105); SODIUM SERUM 138.0 mmol/L (136-145); UREA NITROGEN, BLOOD 22.0 mg/dL (7-18)
--- NOTE | 2025-08-06 15:30 | HMCIMG ---
EXAM: CR Chest, 1 View. CLINICAL HISTORY: CHEST PAIN COMPARISON: Radiograph dated April 19, 2025 FINDINGS: LUNGS: The lungs show no infiltrate or other acute finding. Mild bibasilar atelectasis. PLEURAL SPACES: No evidence of pleural effusion or pneumothorax. MEDIASTINUM: Stable cardiomegaly. Pulmonary vasculature and interstitial markings are within normal limits. BONES: No acute osseous abnormality. IMPRESSION: 1. No acute cardiopulmonary findings. /[place]
[2025-08-06] MEDS: ASPIRIN 325MG TAB PO ONE (16:23)
[2025-08-06] MEDS ORDERED: APIX5TAB PO (17:21)
[2025-08-06] MEDS ORDERED: FURO20TA4 PO (17:21)
[2025-08-06] MEDS ORDERED: LEVO75TA10 PO (17:21)
[2025-08-06] MEDS ORDERED: HYDR-4030 PO ×2 (17:21→18:02)
[2025-08-06] MEDS ORDERED: BUSP5TAB3 PO (17:21)
[2025-08-06] MEDS ORDERED: ATOR20TA65 PO (17:21)
[2025-08-06] MEDS ORDERED: AMLO2.5T4 PO (17:21)
[2025-08-06] MEDS ORDERED: TRAZ-185 PO (17:21)
[2025-08-06] MEDS ORDERED: ERGO500093 PO (17:21)
[2025-08-06] MEDS ORDERED: TELM40TA8 PO (17:21)
[2025-08-06] MEDS ORDERED: FLUO10TA35 PO (17:21)
[2025-08-06] MEDS ORDERED: CARV25TA PO (17:21)
[2025-08-06] MEDS ORDERED: ALBU18HF7 IH (17:22)
[2025-08-06] MEDS ORDERED: FLUO40CR TP (18:04)
--- NOTE | 2025-08-06 18:19 | HP ---
HISTORY AND PHYSICAL Date of Visit: Aug 06, 2025 Time of Visit: 18:19 ADMISSION DATE: Aug 06, 2025 at 17:10 CC: CP HPI: THIS IS A 70 YR OLD WOMAN WITH HISTORY OF PERMANENT AFIB HTN AND ROXY WHO PRESENTED WITH ACUTE ONSET OF SUBSTERNAL CP. THE DURATION WAS 30 MINUTES BUT DID NOT RADIATE AND SOUGHT EMERGENT ATTENTION IN THE ER. SHE REPORTS THE EPISODE WAS BROUGHT ON BY A STRESSFUL SITUATION. THE PAIN WAS INTERMITTENT AND SHE DENIED AN ASSOCIATION TO DEEP INSPIRATION, MEALS OR CHANGE IN POSITION. NO FEVERS CHILLS COUGH OR CONGESTION. NO DIAPHORESIS, JAW OR SHOULDER PAIN. NO PALPITATIONS PND ORTHOPNEA. SHE FOLLOWS WITH DR WEATHERS AT THE [facility]. PAST MEDICAL HISTORY: Hypothyroidism Mixed hyperlipidemia - Onset: 12/20/2024 Body mass index 39 / Morbid Obesity Hypercoagulability state Generalized anxiety disorder Sedative dependence Permanent Atrial fibrillation - Onset: 12/20/2024 Congestive heart failure, Systolic - EF 40-44 % 07/2024 Echo, mild LVH and severe LAD Chronic kidney disease stage 3B Long-term current use of anticoagulant - Onset: 12/20/2024 Hypertensive heart AND chronic kidney disease with congestive heart failure - Onset: 12/20/2024 MANJU on CPAP Hx CVA's Chronic insomnia - Onset: 12/20/2024 SOCIAL HISTORY: NO CURRENT ALCOHOL TOBACCO OR DRUG ABUSE FAMILY HISTORY: NOT WELL KNOWN ^ Allergies: Coded Allergies: Tetracyclines (Unverified Allergy, Unknown, 04/02/19) Scheduled Amlodipine Besylate (Amlodipine Besylate), 2.5 MG PO PM Apixaban (Eliquis), 5 MG PO BID Atorvastatin Calcium (Atorvastatin Calcium), 20 MG PO HS Buspirone HCl (Buspirone HCl), 5 MG PO BID Carvedilol (Carvedilol), 25 MG PO BID Ergocalciferol (Vitamin D2) (Vitamin D2), 1,250 MCG PO QWEEK Fluorouracil (Efudex), 1 APPL TP BID Fluoxetine HCl (Fluoxetine HCl), 10 MG PO PM Furosemide (Furosemide), 20 MG PO DAILY Levothyroxine Sodium (Levothyroxine Sodium), 75 MCG PO DAILY Telmisartan (Telmisartan), 40 MG PO BID Scheduled PRN Albuterol Sulfate (Ventolin Hfa), 2 PUFF IH Q4HPRN PRN for wheezing Hydroxyzine Pamoate (Hydroxyzine Pamoate), 25 MG PO BID PRN for ANXIETY/AGITATION Trazodone HCl (Trazodone HCl), 100 MG PO HSPRN PRN for INSOMNIA/SLEEP Discontinued Medications Cephalexin Monohydrate (Keflex), 500 MG PO BID Diclofenac Sodium (Voltaren Arthritis Pain), 20 GM TP BID PRN for PAIN Ibuprofen (Ibuprofen), 600 MG PO Q6H PRN for PAIN Mupirocin (Mupirocin Ointment), 1 APPL TP TID Review of Systems Normal Constitutional:, Normal Eyes:, Normal Ear/Nose/Mouth/Throat, Normal Respiratory:, Normal Gastrointestinal:, Normal Genitourinary:, Normal Integumentary:, Normal Musculoskeletal:, Normal Neurological:, Normal Psychological:, Normal Endocrine:, Normal Hematologic/Lymphatic:, Normal Allergic/Immunologic:; Abnormal Cardiovascular: (REFER TO HPI) Physical Exam Vital Signs Vital Signs Date Time Temp Pulse Resp B/P (MAP) Pulse Ox O2 Delivery O2 Flow Rate FiO2 08/06/25 14:36 98.4 73 18 124/70 97 Room Air 0 08/06/25 15:26 28 Appearance: Obese Eyes: Clear, PERRL, EOM Normal Ear/Nose/Mouth/Throat: Landmarks WNL, Oropharynx WNL Neck: Symmetric, trach midline Cardiovascular: No Edema, Abnormal (IRREGULAR RATE ) Respiratory: No Retractions, Lungs clear G.I.: Normal bowel sounds, No pain w/ palpations, No rebound tenderness Lymphatic: No lymphadenopathy neck, No lymphadenopathy axilla, No lymphade nopathy groin Musculoskeletal: Strength/Tone WNL Breasts: Symmetrical, no masses Skin: No rash/ulcers Neurology: Nerves I-XII intact, Sensation WNL Psychology: Insight WNL, Orientation WNL, Memory WNL, Affect WNL Diagnostics Laboratory Tests Test 08/06/25 14:53 08/06/25 16:34 Range/Units White Blood Count 7.2 4.8-10.8 K/uL Red Blood Count 3.99 4.00-5.50 MIL/uL Hemoglobin 11.1 12.0-16.0 g/dL Hematocrit 35.9 36-48 % Mean Corpuscular Volume 90.0 79-99 fL Mean Corpuscular Hemoglobin 27.8 27.0-33.0 pg Mean Corpuscular Hemoglobin Concent 30.9 32.0-36.0 g/dL Red Cell Distribution Width 14.6 11.0-15.5 % Platelet Count 286 130-400 K/uL Mean Platelet Volume 10.4 7.5-10.5 fL Immature Granulocyte % (Auto) 0.3 0-1 % Neutrophils (%) (Auto) 60.3 40.0-77.0 % Lymphocytes (%) (Auto) 25.6 21.0-51.0 % Monocytes (%) (Auto) 8.2 3.0-13.0 % Eosinophils (%) (Auto) 5.0 0.0-8.0 % Basophils (%) (Auto) 0.6 0.0-5.0 % Neutrophils # (Auto) 4.4 1.8-7.7 K/uL Lymphocytes # (Auto) 1.9 1.0-4.8 K/uL Monocytes # (Auto) 0.6 0.1-1.0 K/uL Eosinophils # (Auto) 0.36 0.00-0.70 K/uL Basophils # (Auto) 0.04 0.00-0.20 K/uL Absolute Immature Granulocyte (auto 0.02 0-1 K/uL Nucleated Red Blood Cells 0.0 0.0-0.19 % Red Blood Cell Morphology See comments Sodium Level 138 136-145 mmol/L Potassium Level 4.4 3.5-5.1 mmol/L Chloride Level 101 101-111 mmol/L Carbon Dioxide Level 31 21-32 mmol/L Blood Urea Nitrogen 22 7-18 mg/dL Creatinine 1.5 0.5-1.0 mg/dL Glomerular Filtration Rate Calc 37 >90 mL/min Random Glucose 116 70-105 mg/dL Total Calcium 9.0 8.5-10.1 mg/dL Troponin I High Sensitivity 8 7 4-50 ng/L B-Type Natriuretic Peptide 150 0-100 pg/mL Assessment/Plan Assessment/Plan ASSESSMENT: THIS IS A 70 YR OLD WOMAN WITH HISTORY OF Hypothyroidism Mixed hyperlipidemia - Onset: 12/20/2024 Body mass index 39 / Morbid Obesity Hypercoagulability state Generalized anxiety disorder Sedative dependence Permanent Atrial fibrillation - Onset: 12/20/2024 Congestive heart failure, Systolic - EF 40-44 % 07/2024 Echo, mild LVH and severe LAD Chronic kidney disease stage 3B Long-term current use of anticoagulant - Onset: 12/20/2024 Hypertensive heart AND chronic kidney disease with congestive heart failure - Onset: 12/20/2024 MANJU on CPAP Hx CVA's Chronic insomnia - Onset: 12/20/2024 SHE PRESENTED WITH ATYPICAL CHEAT PAINS PLAN: ADMIT FOR OBSERVATION MONITOR SERIAL CARDIAC ENZYMES HOLD ELIQUIS COVER WITH LOVENOX ADD ASA DAILY TOPICAL NITRATES PPI FOR STRESS ULCER PROPHYLAXIS ANTI ANXIETY AGENTS PRN SUPPLEMENT ELECTROLYTES CONT ADJUST BP AND HR MEDS NEEDED SUPPORTIVE MEASURES PRAKASH GOMEZ MD Aug 06, 2025 18:19
--- NOTE | 2025-08-06 18:22 | EKG ---
[facility] Test Date: 2025-08-06 Test Time: 16:34:33 Pat Name: EDER ROSE Department: EDHIP Room: ED 12 Gender: F Reading Specialist: [id number] : 1955 Requested By: ERWIN PERSAUD Order Number: [id number] Reading MD: Dexter Chou Measurements Intervals [place] Rate: 73 P: 0 OK: 0 QRS: -30 QRSD: 95 T: 18 QT: 461 QTc: 483 Interpretive Statements Atrial fibrillation Compared to ECG 08/06/2025 14:28:50 No significant changes Electronically Signed On 08-07-2025 14:37:17 CDT by Dexter Chou Please click the below link to view image of tracing.
--- NOTE | 2025-08-06 18:22 | EKG ---
[facility] Test Date: 2025-08-06 Test Time: 14:28:50 Pat Name: EDER ROSE Department: EDHIP Room: ED 12 Gender: F Capacity Management Specialist: [id number] : 1955 Requested By: ERWIN PERSAUD Order Number: [id number] Reading MD: Dexter Chou Measurements Intervals [place] Rate: 73 P: 0 CA: 0 QRS: -29 QRSD: 92 T: 6 QT: 442 QTc: 487 Interpretive Statements Atrial fibrillation Inferior infarct, old Compared to ECG 04/19/2025 07:26:31 Myocardial infarct finding now present Prolonged QT interval no longer present Electronically Signed On 08-07-2025 14:36:01 CDT by Dexter Chou Please click the below link to view image of tracing.
[2025-08-06] MEDS ORDERED: (Albuterol Sulfate (Ventolin Hfa) 2 PUFF) IH PRN (18:30)
[2025-08-06] MEDS ORDERED: SENNOSIDES 8.6 MG TABLET PO PRN (18:30)
[2025-08-06] MEDS ORDERED: PoTASSium chl 10% ELIXIR 20MEQ 20 MEQ/15 ML UDCUP PO PRN (18:30)
[2025-08-06] MEDS ORDERED: guaiFENesin-DM 200/20MG 10ML PO PRN (18:30)
[2025-08-06] MEDS ORDERED: LACTULOSE 20 GM/30 ML UDCUP PO PRN (18:30)
[2025-08-06] MEDS ORDERED: MAG/ALUM/SIMETH 30 ML UDCUP PO PRN (18:30)
[2025-08-06] MEDS ORDERED: PoTASSium chloRIDE 20MEQ ER 20 MEQ ERTAB PO PRN (18:30)
[2025-08-06] MEDS: NITROGLYCERIN 1GM OINT 1 INCH/1GM TD SCH (20:01)
[2025-08-06] MEDS: FLUOROURACIL APPL TP SCH (21:00)
[2025-08-06] MEDS: amLODIPine 2.5 MG TAB PO SCH (21:01)
[2025-08-07 00:10] LABS: CREATINE KINASE, TOTAL 51.0 U/L (21-232)
--- NOTE | 2025-08-07 05:19 | NUR ---
PATIENT IS VERY RUDE TOWARDS STAFFS, 'RACIST' IN A SENSE THAT SHE TOLD ME I SHOULD SPEAK PROPER MALIAN IN A WAY SHE UNDERSTANDS' MADE DEANGELO GASPAR AWARE
[2025-08-07 06:42] LABS: CREATINE KINASE, TOTAL 263.0 U/L (21-232)
[2025-08-07 07:45] VITALS: TEMP 97.5
--- NOTE | 2025-08-07 07:50 | NUR ---
PT OBSERVED TO BE ON [place]
[2025-08-07] MEDS: NITROGLYCERIN 0.4 MG SL TAB SL PRN (08:04)
--- NOTE | 2025-08-07 08:25 | NUR ---
PT TAKEN TO [facility] AT THIS TIME
[2025-08-07] MEDS: REGADENOSON 0.4 MG/5 ML PF SYG IVP ONE (09:23)
--- NOTE | 2025-08-07 09:34 | NUR ---
DR. GOMEZ AT BEDSIDE
[2025-08-07] MEDS: ENOXAPARIN SODIUM 30 MG/0.3 ML SQ SCH (10:04)
[2025-08-07] MEDS: ASPIRIN 81MG CHEW TAB PO SCH (10:07)
--- NOTE | 2025-08-07 10:27 | NUR ---
DCP:[place] Pt was uncooperative and rude during assessment. Pt states that she lives at [facility] with her . Pt states that she has "everything", SW went over assistive equipment and was able to have her identify wheelchair, walker, and cane. When asked if she had a provider or if she was able to complete ADLs she responded "I live in an assisted living, what do you think?" TRINO attempted to still gauge what she could do on her own however refused to go on. PCP is Dr Cristina Bean and uses [facility] for any RX needs. At PR pt states that she will go back to [facility] and will needed assistance from facility [facility]. Addendum: 08/07/25 at 1031 by GALILEA CUEVAS SS Amended: Links added.
--- NOTE | 2025-08-07 12:10 | NUR ---
NITROGLYCERN 1GM OINT WITHHELD BP 98/71.
--- NOTE | 2025-08-07 12:36 | HMCSR ---
APPROVED REPORT Height: 5 ft 7in Weight: 70 lbs TEST INDICATIONS CAD The imaging protocol used to acquire images was Rest Tc-99m/stress Tc-99m 1 day Consent: The procedure was explained and understood by the patient. Informerd consent was witnessed Willy Nayak RN First, low dose rest was performed then high dose stress. RESTING DATA: The resting ekg shows: Atrial Fibrillation Rest SPECT myocardial perfusion imaging was performed in supine position minutes following the intra venous injection of 11 mCi of Tc-99 Sestamibi. Time of rest injection: 07:07: Date: 08/07/2025 PHARMACOLOGIC STRESS: Pharmacologic stress test was performed by injecting regadenoson 0.4 mg IV push followed by the intra venous injection of 27 mCi of Tc-99 Sestamibi. Time of stress injection: 09:13: Date: 08/07/2025 Gated Stress SPECT was performed 80 minutes after stress injection. The images were gated to evaluate regional wall motion and calculate left ventricular ejection fracti on. STRESS DETAILS Reason for Termination: Infusion complete Stress Symptoms: Dyspnea Max HR Achieved: 112 bpm % of APMHR Achieved: 88 Max Blood Pressure: 123/75 mmHg Stress ECG: Atrial Fibrillation Conclusion No ischemia No infarct Normal variant apical cleft LV ejection fraction 715 Normal LV wall motion Normal LV size at rest and stress No increased lung uptake
[2025-08-07 15:28] VITALS: BP 135/77; PULSE 67; RESP 13; O2SAT 99
--- NOTE | 2025-08-07 16:55 | DS ---
DISCHARGE SUMMARY Date of Visit: Aug 07, 2025 Time of Visit: 16:55 ADMISSION DATE: Aug 06, 2025 at 17:10 DISCHARGE DATE: Aug 07, 2025 ATTENDED PHYSICIAN: Cristina Bean MD DISCHARGE DIAGNOSIS: ATYPICAL CHEST PAIN - NEG [facility] STRESS TEST Hypothyroidism Mixed hyperlipidemia - Onset: 12/20/2024 Body mass index 39 / Morbid Obesity Hypercoagulability state Generalized anxiety disorder Sedative dependence Permanent Atrial fibrillation - Onset: 12/20/2024 Congestive heart failure, Systolic - EF 40-44 % 07/2024 Echo, mild LVH and severe LAD Chronic kidney disease stage 3B Long-term current use of anticoagulant - Onset: 12/20/2024 Hypertensive heart AND chronic kidney disease with congestive heart failure - Onset: 12/20/2024 MANJU on CPAP Hx CVA's Chronic insomnia - Onset: 12/20/2024 FILM CASTING OPERATOR(S): NONE RADIOLOGY: CXR1VW - CHEST 1VW FINDINGS: LUNGS: The lungs show no infiltrate or other acute finding. Mild bibasilar atelectasis. PLEURAL SPACES: No evidence of pleural effusion or pneumothorax. MEDIASTINUM: Stable cardiomegaly. Pulmonary vasculature and interstitial markings are within normal limits. BONES: No acute osseous abnormality. IMPRESSION: No acute cardiopulmonary findings. PROCEDURES: [facility] STRESS TEST Conclusion No ischemia No infarct Normal variant apical cleft LV ejection fraction 715 Normal LV wall motion Normal LV size at rest and stress No increased lung uptake HOSPITAL COURSE: THIS IS 70 YR OLD WOMAN WITH THE ABOVE PAST MEDICAL HISTORY WHO PRESENTED WITH ATYPICAL CHEST PAIN. SHE RULED OUT FOR A MYOCARDIAL INFARCTION AND HAD A FOLLOW UP [facility] STRESS TEST WHICH WAS NEGATIVE. SHE WAS THEN DISCHARGED IN STABLE CONDITION TO FOLLOW UP AN OUTPATIENT. DIET: HEART HEALTHY ACTIVITY: PROGRESSIVE AMBULATION CONDITION: STABLE EQUIPMENT: NONE FOLLOW UP APPOINTMENT(S): DR BEAN 2-5 DAYS DISPOSITION: HOME CODE STATUS: FULL OTHER : NO PENDING STUDIES OR TEST RESULTS MEDICATION RECONCILIATION: Home Medications were reconciled with hospital medications upon discharge and discussed with patient and/or responsible libertarian. RESUME PREVIOUS HOME MEDS * Home Meds Active Scripts Fluorouracil (Efudex) 5 % Cream..g., 1 APPL TP BID for 14 Days, #40 GM 0 Refills apply to affected area(s) Prov:CRISTINA BEAN MD 08/06/25 Hydroxyzine Pamoate (Hydroxyzine Pamoate) 25 Mg Capsule, 25 MG PO BID PRN for ANXIETY/AGITATION for 90 Days, #180 CAP Prov:CRISTINA BEAN MD 08/06/25 Albuterol Sulfate (Ventolin Hfa) 90 Mcg Hfa.aer.ad, 2 PUFF IH Q4HPRN PRN for wheezing for 30 Days, #18 GM 0 Refills Prov:CRISTINA BEAN MD 08/06/25 Ergocalciferol (Vitamin D2) (Vitamin D2) 1,250 Mcg (28054 Unit) Capsule, 1250 MCG PO QWEEK, #12 CAP Prov:CRISTINA BEAN MD 08/06/25 Trazodone HCl (Trazodone HCl) 50 Mg Tablet, 100 MG PO HSPRN PRN for INSOMNIA/SLEEP, #90 TAB Prov:CRISTINA BEAN MD 08/06/25 Telmisartan (Telmisartan) 40 Mg Tablet, 40 MG PO BID for 90 Days, #180 TAB Prov:CRISTINA BEAN MD 08/06/25 Levothyroxine Sodium (Levothyroxine Sodium) 75 Mcg Tablet, 75 MCG PO DAILY for 90 Days, #90 TAB Prov:CRISTINA BEAN MD 08/06/25 Furosemide (Furosemide) 20 Mg Tablet, 20 MG PO DAILY, #90 TAB Prov:CRISTINA BEAN MD 08/06/25 Fluoxetine HCl (Fluoxetine HCl) 10 Mg Tablet, 10 MG PO PM for 90 Days, #90 TAB Prov:CRISTINA BEAN MD 08/06/25 Apixaban (Eliquis) 5 Mg Tablet, 5 MG PO BID for 90 Days, #180 TAB Prov:CRISTINA BEAN MD 08/06/25 Carvedilol (Carvedilol) 25 Mg Tablet, 25 MG PO BID for 90 Days, #180 TAB Prov:CRISTINA BEAN MD 08/06/25 Buspirone HCl (Buspirone HCl) 5 Mg Tablet, 5 MG PO BID for 90 Days, #180 TAB Prov:CRISTINA BEAN MD 08/06/25 Atorvastatin Calcium (Atorvastatin Calcium) 20 Mg Tablet, 20 MG PO HS for 90 Days, #90 TAB Prov:CRISTINA BEAN MD 08/06/25 Amlodipine Besylate (Amlodipine Besylate) 2.5 Mg Tablet, 2.5 MG PO PM for 90 Days, #90 TAB Prov:CRISTINA BEAN MD 08/06/25 Discontinued Scripts Cephalexin Monohydrate (Keflex) 500 Mg Cap, 500 MG PO BID for 7 Days, #14 CAP Prov:PETRA GORE CV/CVN CV TSC SYSTEM OPERATOR 11/15/24 Mupirocin (Mupirocin Ointment) 2 % Oint, 1 APPL TP TID for abrasions, #30 GM apply to any abrasions after cleansing Prov:NOHEMI NAVARRO 08/17/23 Ibuprofen (Ibuprofen) 600 Mg Tablet, 600 MG PO Q6H PRN for PAIN, #15 TAB Prov:NOHEMI NAVARRO 08/17/23 Diclofenac Sodium (Voltaren Arthritis Pain) 1 % Gel..gram., 20 GM TP BID PRN for PAIN, #100 GM Prov:NOHEMI NAVARRO 08/17/23 CRISTINA BEAN MD Aug 07, 2025 16:55
--- NOTE | 2025-08-07 19:54 | NUR ---
PATIENT DISCHARGED HOME VIA [facility]
== END 2025-08-07 19:58 | disposition home or self-care (01) ==
LOC: EDH 14:31 → EDHIP 17:10
PROVIDERS: ADMIT Internal Medicine; ATTEND Internal Medicine
DX: R07.89 Other chest pain (principal); E03.9 Hypothyroidism, unspecified; E78.2 Mixed hyperlipidemia; F41.1 Generalized anxiety disorder; I13.0 Hypertensive heart and chronic kidney disease with heart failure and stage 1 through stage 4 chronic kidney disease, or unspecified chronic kidney disease; N18.32 Chronic kidney disease, stage 3b; I50.22 Chronic systolic (congestive) heart failure; E66.01 Morbid (severe) obesity due to excess calories; Z68.39 Body mass index [BMI] 39.0-39.9, adult; Z86.73 Personal history of transient ischemic attack (TIA), and cerebral infarction without residual deficits; Z79.01 Long term (current) use of anticoagulants; Z98.890 Other specified postprocedural states; Z79.899 Other long term (current) drug therapy
CPT/HCPCS: 96374; 96375; 99284; 82550 ×2; 84484 ×4; 80048; 83880; 85025; 36415 ×2; 71045; 93005 ×2; 96372; 93017; 78452; G0378 ×26; J2270; J2405 ×2; J1650; J2785; A9500 ×2